=== PATIENT | male | born 1975 | race Caucasian/White ===

== ENCOUNTER 2017-10-23 20:05 | Emergency (ER) | payer OTHER ==
[~2017-10-23] VITALS: Ht 180.3 cm; Wt 90.7 kg
--- NOTE | 2017-10-23 22:16 | ED PSYCHIATRIC COMPLAINT ---
History of Present Illness General Chief Complaint: General Adult Stated Complaint: SIB BY HIGHWATCH PER HEATHER Source: patient, family, old records, Epic Exam Limitations: no limitations Vital Signs & Intake/Output Vital Signs & Intake/Output Vital Signs Date Time Temp Pulse Resp B/P B/P Pulse O2 O2 Flow FiO2 Mean Ox Delivery Rate 10/25 0610 98.2 62 18 138/83 100 Room Air 10/25 0223 97.9 73 20 108/63 10/24 2149 98.2 75 16 113/73 96 Room Air 10/24 2147 98.2 75 16 113/73 / 1930 98.5 73 20 128/73 98 Room Air / 1735 98.2 70 16 110/59 95 Room Air / 1733 98.2 70 16 110/58 01/04 1615 98.1 72 16 116/79 97 Room Air / 1500 98.1 63 16 140/96 / 1443 54 15 118/77 99 Room Air / 1307 98.1 59 16 114/77 93 Room Air / 1300 98.1 59 16 114/77 /04 1130 98.1 83 17 120/78 98 Room Air / 0910 97.6 80 18 127/74 100 Room Air / 0900 99.0 80 18 127/74 Allergies Coded Allergies: No Known Allergies (10/23/17) Reconcile Medications Chlordiazepoxide HCl 10 MG CAPSULE 1 TAB PO DAILY ETOH WITHDRAWL (Reported) TO START AFTER COMPLETION OF 25MG DOSE Folic Acid 1 MG TABLET 1 TAB PO DAILY ETOH ABUSE, SUPPLEMENT (Reported) Gabapentin 300 MG CAPSULE 1 CAP PO TID WITHDRAWL (Reported) Ondansetron (Zofran Odt) 4 MG TAB.RAPDIS 1 TAB SL Q6 PRN NAUSEA (Reported) Thiamine HCl (B-1) 100 MG TABLET 1 TAB PO DAILY ETOH ABUSE, SUPPLEEMNT ( Reported) Triage Note: PT TO ER WITH PARENTS, ADVISED TO COME IN BY [facility] STAFF/DR. ROMERO TO COMPLETE LIBRIUM TAPER PRIOR TO BEING ADMITTED TO [facility] FOR ALCOHOL DETOX. WAS ADMITTED TO [facility] FROM 10/14 UNTIL TODAY FOR DETOX. DENIES ETOH USE SINCE. DENIES DRUG USE. DENIES SI/HI. PATIENT ALERT, CALM AND COOPERATIVE. Triage Nurses Notes Reviewed? yes Onset: Just prior to arrival Duration: hour(s):, constant, continues in ED Timing: recent history Severity: moderate Associated Symptoms: anxiety HPI: 2 weeks prior to admission patient was hospitalized [facility] for alcohol withdrawal DTs. He had a tyler course admitted to the floor stepdown unit ICU back to stepdown unit discharged yesterday to [facility]. He received a significant amount of benzodiazepines for elevated CIWA and has been on a Librium taper over the last 3 days. During his hospitalization his gait became unsteady with weakness requiring using a walker for assistance and physical therapy. There's been no fever chills nausea vomiting diarrhea abdominal pain chest pain shortness of breath headache dysuria rash bleeding suicidal ideation homicidal ideation hallucination. (Angel Luis Noel MD) Past History Travel History Traveled to [facility] [place] past 21 day No Medical History Any Pertinent Medical History? see below for history Cardiovascular: hypertension Surgical History Surgical History: non-contributory Psychosocial History What is your primary language Serbian Tobacco Use: Never used ETOH Use: alcoholic Family History Hx Contributory? No (Angel Luis Noel MD) Review of Systems Review of Systems Constitutional: Reports: no symptoms. EENTM: Reports: no symptoms. Respiratory: Reports: no symptoms. Cardiovascular: Reports: no symptoms. GI: Reports: no symptoms. Genitourinary: Reports: no symptoms. Musculoskeletal: Reports: no symptoms. Skin: Reports: no symptoms. Neurological/Psychological: Reports: no symptoms. Hematologic/Endocrine: Reports: no symptoms. Immunologic/Allergic: Reports: no symptoms. All Other Systems: Reviewed and Negative (Angel Luis Noel MD) Physical Exam Physical Exam General Appearance: well developed/nourished, mild distress Head: atraumatic Eyes: Bilateral: PERRL, EOMI. Ears, Nose, Throat: normal pharynx, normal ENT inspection, hearing grossly normal Neck: normal inspection, supple Respiratory: normal breath sounds Cardiovascular: regular rate/rhythm Gastrointestinal: soft, non-tender Extremities: normal range of motion Neurological/Psychiatric: no motor/sensory deficits, awake, alert, snipper II-XII nml as tested, oriented x 3 Appearance/Memory/Insight: disheveled Behavoir/Eye Contact/Speech: cooperative, decreased rate of speech Thoughts/Hallucinations: no apparent hallucination Skin: intact, normal color, warm/dry SAD PERSONS Done? patient not suicidal (Angel Luis Noel MD) Progress Differential Diagnosis: drug overdose Plan of Care: Orders Procedure Date/time Status Vital Signs 10/24 2048 Active Current Medications Sig/Florentino Start time Last Medication Dose Stop Time Status Admin Chlordiazepoxide HCl 10 MG ONCE ONE 10/25 0230 CAN (Librium) 10/25 0231 Levetiracetam 500 MG BID 10/24 1000 UNVr 10/24 (Keppra) 215 Gabapentin 300 MG Q8 10/24 09 UNVr 10/24 (Neurontin) 2150 7:17 AM 10/25 PATIETN TO GO TO [facility] FOR INPATIENT DETOX. (Mila MUNSON,Hattie) Hand-Off Endorsed To: Javon Romero MD Endorsed Time: 651 Pending: other (taper from benzos) (Angel Luis Noel MD) Hand-Off Endorsed To: Leonardo Link MD Endorsed Time: 1899 Pending: other (TAPER, TRANSGFER TO HW IN THE ) Comments: Patient to remain in the emergency department to evaluate for potential benzo withdrawal given the aggressive Librium that he received while at detox. As long the patient remained stable today and threw tonight he will be able to be discharged back to [facility] tomorrow. (Heather MUNSON,Javon Burr) Comments: 10/24/2017 8:26:30 PM patient signed out to me by Dr. Romero at shift climate change analyst. The patient is currently resting comfortably. 10/25/2017 2:35:06 AM I have reevaluated Oscar given that his nurse thought that he might be confused. She states his CIWA score was 8. She thought he might require a benzodiazepine. I have reevaluated Oscar and he is alert and oriented to person place and time. He also knows current events. He has repeatedly declined medication with Librium or other alcohol detox medication. I find him to be capable of medical decision making at this time. He intends to seek treatment at [facility] later this morning. 10/25/2017 7:18:21 AM patient signed out to Dr. Zaragoza at shift climate change analyst afternoon uneventful emergency department stay overnight. (Fariba MUNSON,Leonardo Wilkes) Departure Departure Condition: Stable Clinical Impression Primary Impression: Benzodiazepine toxicity Referrals: Patient Has No Primary Care Dr (PCP/Family) Departure Forms: Customer Survey General Discharge Information (Angel Luis Noel MD) Departure Time of Disposition: 754 Disposition: HOME OR SELF CARE Additional Instructions: FOLLOW UP WITH [facility] TODAY (Mila MUNSON,Hattie) Absolute Basophils 0.1, PUBS MCHC 34.7, Urine Opiates Screen < 100.00, Methadone Screen < 40, Barbiturate Screen < 60, Ur Phencyclidine Scrn < 6.00, Amphetamines Screen < 100, U Benzodiazepines Scrn > 800 H, Urine Cocaine Screen < 50, Urine Cannabis Screen < 5.00 Hand-Off Endorsed To: Javon Romero MD Endorsed Time: 651 Pending: other (taper from benzos) (Angel Luis Noel MD) Hand-Off Endorsed To: Leonardo Link MD Endorsed Time: 1899 Pending: other (TAPER, TRANSGFER TO HW IN THE ) Comments: Patient to remain in the emergency department to evaluate for potential benzo withdrawal given the aggressive Librium that he received while at detox. As long the patient remained stable today and threw tonight he will be able to be discharged back to [facility] tomorrow. (Javon Romero MD) Comments: 10/24/2017 8:26:30 PM patient signed out to me by Dr. Romero at shift climate change analyst. The patient is currently resting comfortably. (Fariba MUNSON,Leonardo Wilkes) Departure Departure Disposition: STILL A PATIENT Condition: Stable Clinical Impression Primary Impression: Benzodiazepine toxicity Referrals: Patient Has No Primary Care Dr (PCP/Family) Departure Forms: Customer Survey General Discharge Information (Angel Luis Noel MD)
[2017-10-23 22:27] LABS: ABSOLUTE BASOPHIL COUNT 0.1 /CUMM (0.0-0.2); ABSOLUTE EOSINOPHIL COUNT 0.1 /CUMM (0.0-0.7); ABSOLUTE GRANULOCYTE CT 2.5 /CUMM (1.4-6.5); ABSOLUTE LYMPH COUNT 1.4 /CUMM (1.2-3.4); ABSOLUTE MONOCYTE COUNT 0.6 /CUMM (0.10-0.60); BASOPHIL % 1.4 % (0.0-2.0); EOSINOPHIL % 2.1 % (0-5); GRANULOCYTE % 53.6 % (42.2-75.2); HEMATOCRIT 34.1 % (42-52); MEAN CORPUSCULAR HGB 33.5 PG (27.0-31.0); MEAN CORPUSCULAR HGB CONC 34.7 G/DL (33.0-37.0); MEAN CORPUSCULAR VOLUME 96.5 FL (80.0-94.0); MEAN PLATELET VOLUME 7.2 FL (7.4-10.4); PLATELET COUNT 104 /CUMM (130-400); RBC DISTRIBUTION WIDTH 14.4 % (11.5-14.5); RED BLOOD CELL CT 3.54 /CUMM (4.70-6.10); WHITE BLOOD CELL COUNT 4.6 /CUMM (4.8-10.8)
[2017-10-23] MEDS ORDERED: CHLORDIAZEPOXID25 M3 PO (22:28)
[2017-10-23] MEDS ORDERED: CHLORDIAZEPOXID10 M2 PO (22:30)
[2017-10-23] MEDS ORDERED: GABAPENTIN300 M2 PO (22:32)
[2017-10-23] MEDS ORDERED: B-1100 MG PO (22:33)
[2017-10-23] MEDS ORDERED: FOLIC ACID1 M1 PO (22:33)
[2017-10-23] MEDS ORDERED: ZOFRAN ODT4 M1 SL (22:34)
[2017-10-25 06:10] VITALS: BP 138/83
== END 2017-10-25 08:10 ==
LOC: ERH 20:05
PROVIDERS: Emergency Medicine
DX: T42.4X1A Poisoning by benzodiazepines, accidental (unintentional), initial encounter (principal)
CPT/HCPCS: 80307; G0480